=== PATIENT | female | born 1985 | race Caucasian/White ===

== ENCOUNTER 2017-08-26 17:52 | Inpatient (IN) | payer OTHER ==
[2017-08-26] MEDS: LACTATED RINGER'S 1,000 ML IV ×3 (18:48→22:38)
[2017-08-26] MEDS ORDERED: CARBOPROST 250 MCG INJ IM (21:00)
[2017-08-26] MEDS ORDERED: OXYTOCIN 30 UNITS/LR 500 ML IV (21:00)
[2017-08-26] MEDS ORDERED: METHYLERGONOVINE 0.2 MG INJ IM (21:00)
[2017-08-26] MEDS ORDERED: MISOPROSTOL 200 MCG TAB PR (21:00)
[2017-08-26] MEDS ORDERED: LIDOCAINE 1% (MPF) 30 ML INJ INJ (21:00)
[2017-08-26] MEDS ORDERED: IBUPROFEN 600 MG TAB PO (21:00)
[2017-08-26 21:22] LABS: ADD MAN DIFF? NO
[2017-08-26 21:26] LABS: BASOPHILS % 0.1 % (0.0-2.0); EOSINOPHILS # 0.1 10^3/ul (0.0-0.5); HEMATOCRIT 32.9 % (37.0-47.0); HEMOGLOBIN 11.6 g/dl (12.0-16.0); LYMPHOCYTES # 1.5 10^3/ul (0.8-2.9); LYMPHOCYTES % 17.9 % (15.0-51.0); MEAN CORPUSCULAR HGB CONC 35.3 g/dl (32.0-37.0); MEAN CORPUSCULAR VOLUME 96.5 fl (82.0-101.0); MEAN PLATELET VOLUME 9.8 fl (7.4-10.4); MONOCYTE # 0.5 10^3/ul (0.3-0.9); MONOCYTES % 6.2 % (0.0-11.0); NEUTROPHIL # 6.2 10^3/ul (1.6-7.5); NEUTROPHILS % 74.2 % (39.0-77.0); PLATELET COUNT 128 10^3/UL (140-415); RED BLOOD COUNT 3.41 10^6/ul (4.20-5.40); RED CELL DISTRIBUTION WIDTH 14.7 % (11.5-14.5)
[2017-08-26 21:26] LABS: WHITE BLOOD COUNT 8.3 10^3/ul (4.8-10.8)
[2017-08-26 21:42] LABS: INR 0.94; PROTIME 12.7 Sec (11.9-14.9)
[2017-08-26] MEDS: AMPICILLIN 2 GM/NS (PMX) 100 ML IV (22:14)
[2017-08-26 22:21] LABS: HEPATITIS B SURFACE ANTIGEN NEGATIVE (NEGATIVE)
[2017-08-26 23:43] LABS: AMPHETAMINE/METHAMPHETAMINE Negative (NEGATIVE); BARBITURATES Negative (NEGATIVE); BENZODIAZEPINES Negative (NEGATIVE); CANNABINOIDS Negative (NEGATIVE); COCAINE Negative (NEGATIVE); OPIATES Negative (NEGATIVE)
[2017-08-27] MEDS: AMPICILLIN 1 GM/NS (PMX) 50 ML IV ×6 (01:50→22:17)
[2017-08-27] MEDS: LACTATED RINGER'S 1,000 ML IV ×4 (03:42→17:21)
[2017-08-27] MEDS: OXYTOCIN 30 UNITS/LR 500 ML IV (09:36)
[2017-08-27] MEDS: BUTORPHANOL 2 MG INJ IV (12:08)
[2017-08-27] MEDS ORDERED: NALOXONE (0.4 MG/ML) INJ IV (17:00)
[2017-08-27] MEDS ORDERED: FENTAnyl 2MCG/ML-ROPIV 0.2% 100 ML BAG EPI (17:00)
[2017-08-27] MEDS ORDERED: DIPHENHYDRAMINE 50 MG INJ IV (17:00)
[2017-08-27 19:48] LABS: RAPID PLASMA REAGIN NONREACTIVE (NR)
[2017-08-27] MEDS: ONDANSETRON 4 MG INJ IV (22:15)
[2017-08-28] MEDS: OXYTOCIN 30 UNITS/LR 500 ML IV ×3 (01:02→05:45)
[2017-08-28] MEDS ORDERED: CARBOPROST 250 MCG INJ IM (01:30)
[2017-08-28] MEDS ORDERED: OXYTOCIN 30 UNITS/LR 500 ML IV (01:30)
[2017-08-28] MEDS ORDERED: METHYLERGONOVINE 0.2 MG INJ IM (01:30)
[2017-08-28] MEDS ORDERED: MISOPROSTOL 200 MCG TAB PR (01:30)
[2017-08-28] MEDS: OXYCODONE/ASPIRIN (4.88/325) TAB PO ×3 (03:46→19:59)
[2017-08-28] MEDS: LANOLIN 7 GM TUBE TOP (03:47)
[2017-08-28] MEDS: IBUPROFEN 600 MG TAB PO ×4 (05:44→23:50)
[2017-08-28] MEDS: LACTATED RINGER'S 1,000 ML IV* ×3 (06:12→17:13)
[2017-08-28] MEDS: MINERAL OIL LIGHT 10 ML VIAL TOP (06:12)
[2017-08-28] MEDS: CEPHALEXIN 500 MG CAP PO ×3 (12:04→23:51)
[2017-08-28 16:24] LABS: RHOGAM PROFILE 1 1
[2017-08-29] MEDS: CEPHALEXIN 500 MG CAP PO ×3 (06:28→17:46)
[2017-08-29] MEDS: IBUPROFEN 600 MG TAB PO ×3 (06:28→17:46)
[2017-08-29] MEDS: BENZOCAINE 20% 56 ML SPRAY TOP (07:17)
[2017-08-29] MEDS: WITCH HAZEL/GLYCERIN PAD PR (07:17)
[2017-08-29 09:05] LABS: ADD MAN DIFF? NO
[2017-08-29 09:07] LABS: BASOPHILS % 0.4 % (0.0-2.0); EOSINOPHILS # 0.1 10^3/ul (0.0-0.5); EOSINOPHILS % 1.6 % (0.0-7.0); HEMATOCRIT 34.3 % (37.0-47.0); HEMOGLOBIN 11.8 g/dl (12.0-16.0); LYMPHOCYTES # 1.3 10^3/ul (0.8-2.9); LYMPHOCYTES % 17.7 % (15.0-51.0); MEAN CORPUSCULAR HEMOGLOBIN 34.3 pg (29.0-33.0); MEAN CORPUSCULAR HGB CONC 34.4 g/dl (32.0-37.0); MEAN CORPUSCULAR VOLUME 99.7 fl (82.0-101.0); MEAN PLATELET VOLUME 10.5 fl (7.4-10.4); MONOCYTE # 0.5 10^3/ul (0.3-0.9); MONOCYTES % 7.1 % (0.0-11.0); NEUTROPHIL # 5.5 10^3/ul (1.6-7.5); NEUTROPHILS % 72.7 % (39.0-77.0); PLATELET COUNT 110 10^3/UL (140-415); RED BLOOD COUNT 3.44 10^6/ul (4.20-5.40); RED CELL DISTRIBUTION WIDTH 14.8 % (11.5-14.5)
[2017-08-29 09:07] LABS: WHITE BLOOD COUNT 7.6 10^3/ul (4.8-10.8)
[2017-08-29] MEDS: OXYCODONE/ASPIRIN (4.88/325) TAB PO (22:15)
[2017-08-30] MEDS: CEPHALEXIN 500 MG CAP PO ×4 (00:01→17:09)
[2017-08-30] MEDS: IBUPROFEN 600 MG TAB PO ×4 (00:01→17:09)
[2017-08-30] MEDS: OXYCODONE/ASPIRIN (4.88/325) TAB PO ×2 (05:07→15:59)
[2017-08-30] MEDS: DIPHTH/TET/ACEL PERTUSS (ADULT) 0.5 ML VIAL IM* (15:06)
== END 2017-08-30 19:00 | disposition home or self-care (01) | DRG 775 ==
LOC: OBT 17:52 → PP1 08-28 02:54 → L-D 17:53 → OBT 20:20 → L-D 20:20
PROVIDERS: Obstetrics & Gynecology
PROC: 10E0XZZ Delivery of Products of Conception, External Approach (ICD-10-PCS; principal; 2017-08-28)
PROC: 0HQ9XZZ Repair Perineum Skin, External Approach (ICD-10-PCS; 2017-08-28)
PROC: 3E0234Z Introduction of Serum, Toxoid and Vaccine into Muscle, Percutaneous Approach (ICD-10-PCS; 2017-08-30)
DX: O36.8130 Decreased fetal movements, third trimester, not applicable or unspecified (principal); O99.824 Streptococcus B carrier state complicating childbirth; O69.81X0 Labor and delivery complicated by cord around neck, without compression, not applicable or unspecified; O70.0 First degree perineal laceration during delivery; Z37.0 Single live birth; Z3A.39 39 weeks gestation of pregnancy; Z23 Encounter for immunization
CPT/HCPCS: 36415; 62319; 76815; 76818; 80307; 85025; 85610; 85730; 86592; 86850; 86870; 86885; 86900; 86901; 87340; 87591; 96360; 96361; 99464